=== PATIENT | female | born 2005 | race Caucasian/White ===

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

== ENCOUNTER 2025-03-02 03:29 | Outpatient (CLI) | payer BC, SELFPAY ==
[2025-03-02 10:14] LABS: Abs Immature Grans 0.02 10^3/uL (0.0-0.06); HCT 37.2 % (36.0-46.0); HGB 12.2 g/dL (11.2-15.7); Immature Grans % 0.3 %; MCH 25.5 pg (27.0-33.0); MCHC 32.8 % (32.0-36.0); MCV 78 fL (80-95); MPV 8.9 fL (8.0-11.0); Platelet Count 285 10^3/uL (130-400); RBC 4.79 10^6/uL (3.93-5.22); RDW 14.2 % (11.7-14.6); RDW-SD 40.1 fL; WBC 6.09 10^3/uL (4.4-10.8)
[2025-03-02 10:22] LABS: Glucose,1 Hr (Glucola) 106 mg/dL (80-140)
[2025-03-02 10:27] LABS: Hemoglobin A1C 5.4 % (<5.7)
[2025-03-02 11:23] LABS: ALT 20 U/L (14-59); AST 11 U/L (15-37); Albumin 3.4 g/dL (3.4-5.0); Alkaline Phosphatase 100 U/L (46-116); Anion Gap 8.9 mmol/L (3-11); BUN 6 mg/dL (7-18); Bilirubin, Total 0.3 mg/dL (0.2-1.0); CO2 26.1 mmol/L (21.0-32.0); Calcium 9.0 mg/dL (8.5-10.1); Chloride 104 mmol/L (98-107); Estimated GFR 126.90 (mL/min/1.73m2); Glucose 106 mg/dL (74-106); Potassium 3.7 mmol/L (3.5-5.1); Sodium 139 mmol/L (136-145); TSH (W/Ref FT4) 1.12 uIU/mL (0.36-3.74); Total Protein 7.4 g/dL (6.4-8.2)
[2025-03-05 09:00] LABS: HIV-1/2 Ag & Ab Screen Negative (Negative)
[2025-03-05 13:02] LABS: Rubella IgG Ab (UVM) Positive (See Note)
[2025-03-05 14:00] LABS: Hepatitis C Ab w Rflx HCV PCR Negative (Negative)
[2025-03-05 20:48] LABS: Syphilis IgG w/Reflex Nonreactive (Nonreactive)
== END 2025-03-02 03:30 | disposition home or self-care (01) ==
LOC: LBO 03:29
PROVIDERS: PCP Pediatrics; Visit Provider Advanced Practice Midwife
DX: Z34.91 Encounter for supervision of normal pregnancy, unspecified, first trimester (principal); Z68.41 Body mass index [BMI] 40.0-44.9, adult
CPT/HCPCS: 36415; 80053; 82950; 86787; 86803; 86850; 86900; 86901; 87340; 87389; 83036; 84443; 85025; 86762; 86780

== ENCOUNTER 2025-03-29 16:16 | Outpatient (CLI) | payer BC, SELFPAY ==
[2025-04-02 12:43] LABS: Chlamydia Result Negative (Negative); GC Result Negative (Negative)
== END 2025-03-29 16:17 | disposition home or self-care (01) ==
LOC: LBO 16:17
PROVIDERS: Advanced Practice Midwife; PCP Pediatrics; Visit Provider Advanced Practice Midwife
DX: Z34.91 Encounter for supervision of normal pregnancy, unspecified, first trimester
CPT/HCPCS: 36415; 87491; 87591